=== PATIENT | male | born 1950 | race Caucasian/White ===

== ENCOUNTER 2021-08-29 08:07 | Day surgery (SDC) | payer MEDICARE, BC, SELFPAY ==
--- NOTE | 2021-08-28 13:56 | P.CONAN_ITS ---
Documented by User: Alondra Osborne NP 08/28/21 13:56 HPI - Anesthesia Eval Consult details Narrative: 71yo M for Colonoscopy [facility] Past Medical History Medical History (Updated 08/28/21 @ 12:29 by Maryam Nash RN) Abnormal colonoscopy HTN (hypertension) Hyperlipemia Surgical History Surgical History (Updated 08/28/21 @ 12:29 by Maryam Nash RN) H/O esophagogastroduodenoscopy Social History Social History Patient Tobacco Use Status: Never used Tobacco Use of substances other than those prescribed or required for medical reasons: No Have you been hit, kicked, punched, or otherwise hurt by someone within the past year? If so, by whom?: No Are you DNR?: No Advance Directives: No Advance Directives Information Provided: Yes Meds Allergies Allergy/AdvReac Type Severity Reaction Status Date / Time No Known Allergies Allergy Unverified 08/27/21 20:22 Home Medications Medication Instructions Recorded Confirmed Last Taken Type irbesartan 150 1 tab PO DAILY 08/28/21 08/28/21 Unknown History mg-hydrochlorothiazide 12.5 mg tablet omeprazole 20 mg capsule,delayed 1 cap PO DAILY 08/28/21 08/28/21 Unknown History release simvastatin 40 mg tablet 1 tab PO BEDTIME 08/28/21 08/28/21 Unknown History Exam Exam Date and Time: August 28, 2021 1356 Assessment and Plan Assessment Anesthesia Assessment: Chart Reviewed Documented by User: Ildefonso Morrissey 08/29/21 09:35 [facility] Past Medical History Medical History (Updated 08/28/21 @ 12:29 by Maryam Nash RN) Abnormal colonoscopy HTN (hypertension) Hyperlipemia Functional capacity: independent ambulation Family History Family history of problems with anesthesia: No Surgical History Surgical History (Updated 08/28/21 @ 12:29 by Maryam Nash RN) H/O esophagogastroduodenoscopy History of Problems with Anesthesia: No Social History Social History Patient Tobacco Use Status: Never used Tobacco Use of substances other than those prescribed or required for medical reasons: No Have you been hit, kicked, punched, or otherwise hurt by someone within the past year? If so, by whom?: No Are you DNR?: No Advance Directives: No Advance Directives Information Provided: Yes Meds Allergies Allergy/AdvReac Type Severity Reaction Status Date / Time No Known Allergies Allergy Unverified 08/27/21 20:22 Home Medications Medication Instructions Recorded Confirmed Last Taken Type irbesartan 150 1 tab PO DAILY 08/28/21 08/28/21 Unknown History mg-hydrochlorothiazide 12.5 mg tablet omeprazole 20 mg capsule,delayed 1 cap PO DAILY 08/28/21 08/28/21 Unknown History release simvastatin 40 mg tablet 1 tab PO BEDTIME 08/28/21 08/28/21 Unknown History Exam Airway Mallampati Class: IV TM Dist: >3cm Neck ROM: Full Loose/Missing/Broken Teeth: Yes (Chipped and fillings ) Assessment and Plan Final Anesthetic Review Family History of Problems with Anesthesia: No History of Problems with Anesthesia: No NPO: Yes ASA Class: II Final Preanesthetic Review: Consent Obtained/Reviewed and Anes Risks/Benef Reviewed Patient Risk: Intermediate Procedure Risk: Intermediate Anesthetic Plan Anesthetic Plan: MAC: Disposition: Standard PACU
[2021-08-29 08:29] VITALS: BP 119/79; PULSE 103; RESP 18; TEMP 36.8; O2SAT 99; BMI 25.8
[2021-08-29] MEDS: Lactated Ringers 1,000 ML 100 ML IVCONT (08:52)
[2021-08-29 10:41] VITALS: BP 87/55; PULSE 77; RESP 16; TEMP 36.3; O2SAT 98
--- NOTE | 2021-08-29 10:44 | P.BOP_ITS ---
Brief Operative Note Date of Service: 08/29/21 Pre-op diagnosis: Screening Post-op diagnosis: other (Colon polyps, Diverticulosis) Procedure: Colonoscopy to the cecum and TI with hot snare polypectomy x 2, with placement of 3 Resolution clips on the ICV polypectomy site Surgeon: Byron Tobias Anesthesia: MAC Was an Tableau Analyst used for this Procedure?: No Estimated blood loss (mL): 2.0 Pathology: other (A. Polyp on inferior portion of Ileocecal valve B. Polyp at 60cm) Condition: stable Disposition: PACU
[2021-08-29 10:56] VITALS: BP 90/60; PULSE 70; RESP 16; O2SAT 96
[2021-08-29 11:11] VITALS: BP 106/80; PULSE 68; RESP 16; TEMP 36.3; O2SAT 98
--- NOTE | 2021-08-29 12:12 | OP_ITS ---
SURGEON: Byron Tobias MD PREOPERATIVE DIAGNOSIS: Colorectal cancer screening and personal history of tubular adenoma of the colon. POSTOPERATIVE DIAGNOSIS: PROCEDURE PERFORMED: Colonoscopy to the cecum and terminal ileum with hot snare polypectomy and placement of 3 Resolution clips on the polypectomy from the ileocecal valve. Full consent was obtained from him for this, including risks of bleeding and perforation. ESTIMATED BLOOD LOSS: COMPLICATIONS: ANESTHESIA: Monitored anesthesia care. ASSISTANTS: SPECIMENS: POSTOPERATIVE DIAGNOSES: Colorectal cancer screening and personal history of tubular adenoma of the colon, colon polyps, diverticulosis, and internal hemorrhoids. DESCRIPTION OF PROCEDURE: The patient was placed in the left lateral decubitus position. The digital rectal exam revealed no abnormalities. The Olympus video pediatric colonoscope was entered into the rectum, advanced easily to the cecum. Once in the cecum, I did identify normal-appearing cecal pouch with appendiceal orifice. The terminal ileum was cannulated and appeared normal. The scope was withdrawn back in the colon. The entire cecum appeared normal. The ileocecal valve was carefully inspected. Along the inferior portion, just outside the opening into the ileum, was what appeared to be a grossly adenomatous area. This seemed to be just outside the opening of the ileocecal valve. This was therefore removed in piecemeal fashion with a hot snare polypectomy, and pieces were recovered by suction. Post polypectomy, there did not appear to be any definitive residual polyp tissue remaining. Three clips were applied with good deployment and good hemostasis. The remainder of the ileocecal valve appeared normal. The clips themselves did not appear to be impinging on the opening into the ileocecal valve and terminal ileum. The scope was then slowly withdrawn assessing all mucosal surfaces carefully. Preparation was excellent. At 60 cm, was an approximately 8 mm polyp, which was snared and recovered by suction. The polypectomy site appeared clean, without any sign of residual polyp nor bleeding. I did not visualize any other polyps, colitis, nor angiodysplasia. There was a moderate amount of sigmoid diverticulosis. In the rectum, scope was retroflexed visualizing internal hemorrhoids but no other pathology. The rectal mucosa appeared normal. The scope was straightened and withdrawn from the patient. He tolerated the procedure well and was returned to recovery area in stable condition. IMPRESSION: 1. Colon polyps, status post hot snare polypectomy and placement of 3 Resolution clips on the ileocecal valve polypectomy site. 2. Diverticulosis. 3. Internal hemorrhoids. PLAN: The results of the pathology will be checked. If the area of the ileocecal valve is adenomatous, I would recommend a repeat colonoscopy within 6-12 months for reinspection of that area. He was advised not to use any aspirin and NSAIDs for at least 1 week. This has been discussed with his . MD TITO Salguero/NIXON / [id number]
== END 2021-08-29 11:45 | disposition home or self-care (01) ==
PROVIDERS: PCP Internal Medicine; Visit Provider Internal Medicine
PROC: 0DJD8ZZ Inspection of Lower Intestinal Tract, Via Natural or Artificial Opening Endoscopic (ICD-10-PCS; CPT 45378; principal; 2021-08-29 09:30)
DX: Z12.11 Encounter for screening for malignant neoplasm of colon (principal); Z86.010 Personal history of colon polyps; K63.5 Polyp of colon; K57.30 Diverticulosis of large intestine without perforation or abscess without bleeding; K64.8 Other hemorrhoids; I10 Essential (primary) hypertension; E78.5 Hyperlipidemia, unspecified; Z79.899 Other long term (current) drug therapy
CPT/HCPCS: 45385; 88305; J2370

== ENCOUNTER 2024-01-16 09:21 | Outpatient (AMB) | payer MEDICARE, BC, SELFPAY ==
[2024-01-16 09:59] VITALS: BP 130/70; PULSE 72; TEMP 37.1; O2SAT 98
--- NOTE | 2024-01-16 09:59 | MHC.OFFWIV ---
Intake Vital Signs 01/16/24 09:59 Height 5 ft 3 in BP 130/70 Blood Pressure Location Rt brachial Position Sitting Pulse 72 Pulse Source Pulse Oximeter Temp 98.8 F Temp Source Oral Pulse Oximetry (%) 98 Oxygen Delivery Method Room Air Intake Visit Reasons: EST/chest congestion (lobby) Intake Note: pt is here for chest congestion Patient Tobacco Use Status: Never used Tobacco Allergies No Known Allergies Allergy (Verified 01/16/24 09:59) Do you need a note to return to daycare/school/sports/work: No HPI HPI Comments History of Present Illness Details 73 y/o male patient who presents to walk in clinic with c/o cough. Reports coughing more at night time. Reports noticing symptoms getting worse every-time he cuts Grass. [facility] Medical History (Updated 08/28/21 @ 12:29 by Maryam Nash RN) Abnormal colonoscopy Hyperlipemia HTN (hypertension) Surgical History (Updated 08/28/21 @ 12:29 by Maryam Nash RN) H/O esophagogastroduodenoscopy Social History Patient Tobacco Use Status: Never used Tobacco Review of Systems Const All systems reviewed & are unremarkable except as noted in HPI and below Physical Exam Vital Signs: Last Vital Signs Temp 98.8 F 01/16/24 09:59 Pulse 72 01/16/24 09:59 BP 130/70 01/16/24 09:59 Pulse Ox 98 01/16/24 09:59 Oxygen Delivery Method Room Air 01/16/24 09:59 Const General: comfortable and no acute distress Orientation/consciousness: patient oriented x3 HEENT Head: Yes normocephalic Ears: external ears normal and TM's normal bilaterally General nose exam: Normal nasal mucous membranes and turbinates present and No nasal discharge present Face and sinus: Yes sinuses nontender Mouth: moist mucous membranes Throat: Yes posterior oropharynx normal Neuro General: patient oriented x3, gait normal and moves all extremities Psych Speech and movement: Normal speech and movement present Assessment & Plan Assessment & Plan (1) Allergic rhinitis: Code(s): J30.9 - Allergic rhinitis, unspecified Qualifiers: Allergic rhinitis seasonality: seasonal Allergic rhinitis trigger: pollen Qualified Code(s): J30.1 - Allergic rhinitis due to pollen Plan: - OTC allergy relief remedies - Wear Mask and gloves when cutting grass. Take a shower immediately after Yard work. Medications: New benzonatate 100 mg PO TID 30 caps 0RF J30.1 - Allergic rhinitis due to pollen cetirizine (Zyrtec) 10 mg PO DAILY PRN 60 tabs 0RF allergy symptoms J30.1 - Allergic rhinitis due to pollen Coding Level of Care Code Est Pt Level 3 (26450) Diagnoses Seasonal allergic rhinitis due to pollen J30.1 Allergic rhinitis seasonality: seasonal Allergic rhinitis trigger: pollen Time Spent (min) 15
== END 2024-01-16 10:40 | disposition home or self-care (01) ==
PROVIDERS: PCP Internal Medicine; Visit Provider Nurse Practitioner Family
DX: J30.1 Allergic rhinitis due to pollen (principal)
CPT/HCPCS: 99213

== ENCOUNTER 2024-09-18 08:14 | Emergency (ER) | payer MEDICARE, BC, SELFPAY ==
--- NOTE | ~2024-09-18 | XR_ITS ---
CLINICAL HISTORY: chest pain 1 view chest x-ray Comparison: None Findings: No consolidation or effusion. Heart size is normal. No acute fracture. IMPRESSION: 1. No acute findings. This document has been electronically signed by: Augustus Fountain MD on 09/18/2024 09:00:01
--- NOTE | 2024-09-18 08:15 | ECG_ITS ---
Test Reason : cp Blood Pressure : */* mmHG Vent. Rate : 67 BPM Atrial Rate : 67 BPM P-R Int : 140 ms QRS Dur : 100 ms QT Int : 392 ms P-R-T Axes : 71 -2 100 degrees QTcB Int : 414 ms Normal sinus rhythm with sinus arrhythmia ST elevation consider inferior injury or acute infarct ACUTE IA / STEMI Consider right ventricular involvement in acute inferior infarct Abnormal ECG No previous ECGs available Referred By: Generic ED Physician Electronically Signed By: LOLA WILHELM MD
[2024-09-18] MEDS: Aspirin 81 MG TAB.CHEW 324 MG PO (08:27)
--- NOTE | 2024-09-18 08:27 | ED.CHESTPAIN ---
HPI - Chest Pain General Chief Complaint: Chest Pain Stated Complaint: CP Time Seen by Provider: 09/18/24 08:21 Source: patient and family Mode of arrival: ambulatory Limitations: no limitations History of Present Illness ED Provider: STEPHANIE KC narrative: 74 yo male with PMH of HTN, HLD, not on blood thinners did recently undergo prostate biopsy on 09/14 he has had central chest pain for the past few days but this AM upon waking he felt much more pain felt short of breath and sweaty. He has no known CAD. His rushed him to the hospital. He denies any black or bloody stools. Denies any medications other than tylenol today. He notes he has not had any URI. He walked into our triage with this complaint MD complaint: chest pain Onset (ago): day(s) (3) Timing of current episode: episodic (much worse upon waking this AM) Prior episodes: No Onset: during rest and during exertion Pain location: substernal Pain radiation: none Severity: moderate Quality: tightness Relieving factors: nothing Exacerbating factors: exertion Associated symptoms: nausea, diaphoresis and dyspnea Treatment prior to arrival: none Related Data Home Medications ?Medication ?Instructions ?Recorded ?Confirmed irbesartan 150 1 tab PO DAILY 08/28/21 08/28/21 mg-hydrochlorothiazide 12.5 mg tablet omeprazole 20 mg capsule,delayed 1 cap PO DAILY 08/28/21 08/28/21 release simvastatin 40 mg tablet 40 mg PO BEDTIME 01/16/24 Previous Rx's ?Medication ?Instructions ?Recorded benzonatate 100 mg capsule 100 mg PO TID #30 caps 01/16/24 cetirizine 10 mg tablet 10 mg PO DAILY for allergies #90 03/12/24 tabs Allergies Allergy/AdvReac Type Severity Reaction Status Date / Time No Known Allergies Allergy Verified 09/18/24 08:34 Review of Systems Review of Systems: Constitutional : No Weight loss, No Fever, No Chills ENT/Mouth : No sore throat, No Rhinorrhea Eyes: No Eye Pain, No Swelling Cardiovascular : pos Chest Pain, pos SOB, no Dyspnea on Exertion, No Orthopnea, No Edema, No Palpitations Respiratory : No Cough, No Sputum Gastrointestinal : pos Nausea, No Vomiting, No Diarrhea, No abdominal Pain, No Hematochezia, No Melena Genitourinary : No Dysuria, No Urinary Frequency Musculoskeletal : No joint pain, No Myalgias, No Joint Swelling Skin : No Skin Lesions, No rash Neuro : No Weakness, No Numbness, No Dizziness, No Headache All other systems reviewed and are negative [facility] Past Medical History Attestation statement: The following information was validated with the patient. Source: old records reviewed Medical History Abnormal colonoscopy Hyperlipemia HTN (hypertension) Surgical History H/O esophagogastroduodenoscopy Social History Social History Patient Tobacco Use Status: Never used Tobacco Advance Directives: No Advance Directives Information Provided: Yes Physical Exam Vital Signs: Vital Signs: Last Vital Signs Temp 97.9 F 09/18/24 08:37 Pulse 60 09/18/24 08:33 Resp 18 09/18/24 08:33 BP 143/89 H 09/18/24 08:33 Pulse Ox 100 09/18/24 08:33 O2 Del Method Room Air 09/18/24 08:33 BMI result Body Mass Index 26.2 Appearance: Alert. Oriented X3. Mild acute distress. appears uncomfortable Eyes: Pupils equal, round and reactive to light. ENT: Pharynx normal. Neck: Normal inspection. Neck supple. CVS: Normal heart rate and rhythm. Pulses normal. Respiratory: No respiratory distress. Breath sounds normal. Abdomen: Soft and nontender. Skin: Skin warm and dry. pale skin color. Normal skin turgor. Extremities: No lower extremity edema. Neuro: Oriented X 3. No motor deficit. No sensory deficit. CN2-12 intact Course Course Course Narrative: call to IR cards 0815 call to EMS transportlevel [address] 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 830am EMS arrived in ED for transport 847am EMS out the door with the patient 857am Medications Administered Generic Name Dose Route Start Last Admin Trade Name Freq PRN Reason Stop Dose Admin Lactated Ringer's 1,000 mls @ 999 mls/hr 09/18/24 08:25 09/18/24 08:30 Lr IV 09/18/24 09:25 999 mls/hr .Q1H1M ONE Administration Discontinued Medications Generic Name Dose Route Start Last Admin Trade Name Rolan PRN Reason Stop Dose Admin Aspirin 324 mg 09/18/24 08:21 09/18/24 08:27 Aspirin 81 Mg Tab.Chew PO 09/18/24 08:22 324 mg ONCE ONE Administration Atorvastatin Calcium 80 mg 09/18/24 08:21 09/18/24 08:30 Atorvastatin Calcium 80 Mg Tablet PO 09/18/24 08:22 80 mg ONCE ONE Administration Fentanyl 50 mcg 09/18/24 08:25 09/18/24 08:31 Fentanyl Citrate/Pf 100 Mcg/2 Ml Vial IVPUSH 09/18/24 08:26 50 mcg ONCE ONE Administration Protocol Heparin Sodium (Porcine) 4,000 unit 09/18/24 08:22 09/18/24 08:30 Heparin Sodium,Porcine 5,000 Unit/Ml Vial IVPUSH 09/18/24 08:23 4,000 unit ONCE ONE Administration Ondansetron HCl 4 mg 09/18/24 08:25 09/18/24 08:31 Ondansetron Hcl 4 Mg/2 Ml Vial IVPUSH 09/18/24 08:26 4 mg ONCE ONE Administration Ticagrelor 180 mg 09/18/24 08:21 09/18/24 08:28 Ticagrelor 90 Mg Tablet PO 09/18/24 08:22 180 mg ONCE ONE Administration Medical Decision Making Medical Decision Making MDM Narrative: 74 yo male with PMH of HTN, HLD, not on blood thinners here with c/o intermittent chest pain x 3 days much worse this AM became diaphoretic, pale, dyspnea and mild nausea. No medications prior to arrival, EKG showing NITA inf leads with reciprocal changes lateral leads as well as ST depresison V2. At this time given presentation will alert STEMI transfer line and STEMI line at [place] on arrival. He will be given STEMI medications and started on fluids, no signs of CHF overload. Discussed plan with . Differential Diagnosis Differential Diagnoses: The differential diagnosis associated with the presentation includes STEMI, ACS Admission/Observation Consideration of admission/observation: Escalation of care including admission/observation considered stat STEMI transfer on arrival including STEMI meds heparin load 4,000 aspirin 324 atorvastatin 80mg brilinta 180 given inf involvement IV fentanyl for pain 50mcg and liter of fluids Consult Healthcare Provider Management of the patient was discussed with: Flat Sorter Processor ([place] accepts patient) Lab Data MDM Lab Attestation statement: I reviewed the patient's lab results. 09/18/24 08:28 09/18/24 08:28 Labs: Lab Results 09/18/24 09/18/24 Range/Units 08:28 08:29 WBC 12.2 H (4.8-10.8) X10*3/uL RBC 5.32 (4.60-5.80) X10*6/uL Hgb 16.4 (14.0-18.0) g/dl Hct 47.6 (42.0-52.0) % MCV 89.5 (80.0-98.0) fL MCH 30.8 (27.0-33.0) pg MCHC 34.5 (31.0-36.0) g/dl RDW 12.2 (11.0-16.0) % Plt Count 225 (160-400) X10*3/uL MPV 11.0 (9.4-12.4) fL Hold Purple Top SEE NOTE PT 11.6 (10.9-12.4) SEC INR 1.0 (0.9-1.1) Independent Interpretation I performed an independent interpretation of an: EKG Interpretation: Rate: 67 Rhythm: NSR [place]: left Normal P waves. Normal MARK. Normal QRS complex. ST T wave : ST elevation in inf leads, reciprocal changes in I and aVL, ST depression V2 qTC: 414 prior studies: no prior The study has been interpreted contemporaneously by me. . Independent Historian Clinical information obtained from an independent historian. History obtained from or confirmed by: Spouse External Record Review External record reviewed: Outpatient record Critical Care Time Critical Care Time Critical Care Time: Yes Total Critical Care Time: 35 Attestation: STEMI transfer, discussion with family, IV fentanyl for pain I attest to this time spent taking care of the patient Discharge Plan Discharge Clinical Impression: ST elevation (STEMI) myocardial infarction Patient Disposition: Xfer Acute Care Hospital Transfer Details: 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
[2024-09-18] MEDS: Ticagrelor 90 MG TABLET 180 MG PO (08:28)
[2024-09-18] MEDS: Atorvastatin Calcium 80 MG TABLET PO (08:30)
[2024-09-18] MEDS: Heparin Sodium,Porcine 5,000 UNIT/ML VIAL 4000 UNIT IVPUSH (08:30)
[2024-09-18] MEDS: Lactated Ringers 1,000 ML 999 ML IV (08:30)
[2024-09-18 08:31] VITALS: RESP 18
[2024-09-18] MEDS: fentaNYL citrate/PF 100 MCG/2 ML VIAL 50 MCG IVPUSH (08:31)
[2024-09-18] MEDS: ondansetron HCL 4 MG/2 ML VIAL IVPUSH (08:31)
[2024-09-18 08:33] VITALS: BP 143/89; PULSE 60; RESP 18; O2SAT 100; BMI 26.2
--- OUTSIDE RECORDS SUMMARY | 2024-09-18 08:36 | XMS_ITS | Clinical Summary ---
Author Organization [address] Address [address] [place] [address] Phone Care Team Providers Care Actuarial Science Teacher Name Role Phone Unavailable Primary Care Provider Unavailabl e Encounters Date Type Department Care Team Description 09/15/2024 Lab Requisition [facility] - Main Lab [address] [facility] [id number] [place] [address] Eliazar Acharya MD Elevated prostate specific antigen (PSA) from Last 3 Months Social History Tobacco Use Types Packs/Day Years Used Date Smoking Tobacco: Never Assessed Sex and Gender Information Value Date Recorded Sex Assigned at Not on file Gender Identity Not on file Sexual Orientation Not on file Plan of Treatment Health Maintenance Due Date Last Done Comments DTaP,Tdap,and Td Vaccines (1 - Tdap) 1970 Zoster Vaccines (1 of 2) 2001 Pneumococcal Vaccine: 65+ Ye ars (1 of 1 - PCV) 2016 COVID-19 Vaccine ( - 2023-2 5 season) 2024 Influenza Vaccine (#1) 2024 Abdominal Aortic Aneurysm (A AA) Screen 09/16/2024 Cholesterol Screening (Lipid Panel) 09/16/2024 Colorectal Cancer Screening: Colonoscopy 09/16/2024 Depression Screening 09/16/2024 Falls Risk Assessment 09/16/2024 Hepatitis C Screening 09/16/2024 Medicare Annual Wellness Visit 09/16/2024 Social Influencers of Health Screening 09/16/2024 RSV Immunization Patients 60 + Years Old (1 - 1-dose 75+ series) 2026 HIB Vaccines Aged Out No longer eligi ble based on patient's age to complete this topic HPV Vaccines Aged Out No longer eligi ble based on patient's age to complete this topic Hepatitis A Vaccines Aged Out No long er eligible based on patient's age to complete this topic Hepatitis B Vaccines Aged Out No long er eligible based on patient's age to complete this topic IPV Vaccines Aged Out No longer eligi ble based on patient's age to complete this topic MMR Vaccines Aged Out No longer eligi ble based on patient's age to complete this topic Meningococcal ACWY Vaccine Aged Out N o longer eligible based on patient's age to complete this topic RSV Immunization Patients Un alpesh 20 months Aged Out No longer eligible b ased on patient's age to complete this topic Varicella Vaccines Aged Out No longer eligible based on patient's age to complete this topic
--- OUTSIDE RECORDS SUMMARY | 2024-09-18 08:36 | XMS_ITS ---
Author Organization [facility] Address [address] [place] [address] Care Team Providers Care Contact Lens Polisher Name Role Phone Debo Hammer MD Primary Care Provider Byron Wang [facility] [phone] REASON FOR VISIT colon recall Encounters Encounter Location Date Provider Diagnosis [facility] [address] [place] [address] 06/09/2024 Byron Tobias PLAN OF TREATMENT No Information
--- OUTSIDE RECORDS SUMMARY | 2024-09-18 08:36 | XMS_ITS | Encounter Summary ---
Author Organization [facility] Address [address] [place] [address] Care Team Providers Care Alcohol Rubber Name Role Phone Unavailable Primary Care Provider Unavailabl e Encounter Details Date Type Department Care Team (Late st Contact Info) Description 09/15/2024 Lab Requisition [facility] - Main Lab [address] [facility] [place] [address] Eliazar Acharya MD [address] [facility] [address] [place] [id number] Elevated prostate specific antigen (PSA) Social History Tobacco Use Types Packs/Day Years Used Date Smoking Tobacco: Never Assessed Sex and Gender Information Value Date Recorded Sex Assigned at Not on file Gender Identity Not on file Sexual Orientation Not on file documented as of this encounter Plan of Treatment Pending Results Name Type Priority Associated Diagnoses Date /Time Anatomic pathology outside consult Pathology and Cytology Routine Elevated prostate specific antigen (PSA) 09/14/2024 documented as of this encounter Visit Diagnoses Diagnosis Elevated prostate specific antigen (PSA) documented in this encounter
--- OUTSIDE RECORDS SUMMARY | 2024-09-18 08:36 | XMS_ITS | Patient Health Record ---
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 Name Role Phone Debo Hammer MD Primary Care Provider Byron Wang [phone] ALLERGIES No Known Allergies REASON FOR REFERRAL No Information MEDICATIONS Medication SIG (Take, Route, Frequency, Duration) Notes Start Date End Date Status Omeprazole 20 MG 2 capsules Orally On ce a day Active Irbesartan-hydroCHLOROthiaz eva 150-12.5 MG Oral for 90 Active Simvastatin 40 MG 1 tablet in the even ing Orally Once a day Active IMMUNIZATIONS Vaccine Route Administration Date Status Comme nts Influenza Unknown 05/25/2021 Administered SOCIAL HISTORY Sex Assigned At : Social History Observation Description Sex Assigned At Unknown PROBLEMS Problem Type ICD Code Onset Dates Problem Status W/U Status Risk SNOMED Code Notes Problem Encounter for screening for malignant neoplasm of colon (Z12.11) Active confirmed 849333990 Problem Encounter for screening for malignant neoplasm of rectum (Z12.12) Active confirmed Screening for malignant neoplasm of rectum (148407676) Problem Gastroesophageal reflux disease, esophagitis presence not specified (K21.9) Active confirmed 833123589 Problem History of adenomatous polyp of colon (Z86.010) Active confirmed 892485038 Problem Preprocedural examination (Z01.818) Active confirmed 085027489912892 Problem Diverticulosis of colon (K57.30) Active confirmed Diverticulosi s of colon (309979740) Encounters Encounter Location Date Provider Diagnosis [facility] [address] [place] [id number] 06/09/2024 Byron Tobias PLAN OF TREATMENT Future Test Test Name Order Date COLONOSCOPY 04/16/2016 COLONOSCOPY 08/02/2021 Insurance Providers Payer Name Payer Address Payer Phone Subscriber Number Group Number Insured Name Patient Relationship to Insured Coverage Start Date Coverage End Date MEDICARE OF [place] [address] [place] [address] [phone] [id number] CHELSEA GARCIA Self - patient is the insured [facility] [address] [place], [place] [id number] CHELSEA GARCIA Self - patient is the insured MEDICAL (GENERAL) HISTORY Medical History History ICD Code Hypertension Denies [place],DM,CVA,Lung disease,renal dise ase Colonoscopy at [facility] with Dr. Martínez > 10 yrs ago--polyps removed Hyperlipidemia GERD--reports an EGD at [facility]--thinks it was negative Colonoscopy in 06/2016 with removal of a tubular adenoma Surgical History Surgery Date(Month/Year)
[2024-09-18 08:37] VITALS: TEMP 36.6
[2024-09-18 08:41] LABS: Basophils Absolute Auto 0.1 X10*3/uL (0.0-0.2); Basophils Percent Auto 0.5 % (0-2); Eosinophils Absolute Auto 0.4 X10*3/uL (0.0-0.4); Hematocrit 47.6 % (42.0-52.0); Hemoglobin 16.4 g/dl (14.0-18.0); Imm Gran Abs Auto 0.04 X10*3/uL (0.00-0.03); Imm Gran Pct Auto 0.3 % (0.0-0.4); Lymphocytes Absolute Auto 5.1 X10*3/uL (1.2-4.9); Lymphocytes Percent Auto 41.3 % (20-40); MANUAL DIFF FLAG SCAN; Mean Corpuscular HGB Conc 34.5 g/dl (31.0-36.0); Mean Corpuscular Hemoglobin 30.8 pg (27.0-33.0); Mean Corpuscular Volume 89.5 fL (80.0-98.0); Monocytes Absolute Auto 1.3 X10*3/uL (0.1-1.2); Monocytes Percent Auto 10.5 % (2-11); Neutrophils Absolute Auto 5.4 x10*3/uL (2.0-8.3); Neutrophils Percent Auto 44.4 % (45-73); Platelet Count 225 X10*3/uL (160-400); Red Blood Count 5.32 X10*6/uL (4.60-5.80); Red Cell Distribution Width 12.2 % (11.0-16.0); SCAN SMEAR FLAG 1; White Blood Count 12.2 X10*3/uL (4.8-10.8)
[2024-09-18 08:42] LABS: Prothrombin Time 11.6 SEC (10.9-12.4)
--- NOTE | 2024-09-18 08:49 | PC.NURSE ---
EMS arrived at 8:49am, report given to EMS
--- NOTE | 2024-09-18 08:56 | PC.NURSE ---
Pt reports CP/pressure at 5/10 at this time; vss; bedside report gv to EMS for transport; LR IVF's infusing per orders; several attempts made to reach cardiac laborer petroleum refinery at [facility]/no answer at several phone numbers at this time; pt leaving ER at [phone] with EMS
[2024-09-18 08:57] VITALS: BP 143/79; PULSE 65; RESP 18; TEMP 36.6; O2SAT 100
[2024-09-18 09:01] LABS: SLIDE REVIEW VERIFIED
--- NOTE | 2024-09-18 09:12 | PC.NURSE ---
Report given to DIEGO Garcia at [facility] cath lab technologist
[2024-09-18 09:15] VITALS: BP 143/79; PULSE 65; RESP 18; TEMP 36.6; O2SAT 100
== END 2024-09-18 08:57 | disposition short-term general hospital (02) ==
PROVIDERS: Emergency Provider Emergency Medicine; PCP Internal Medicine
DX: I21.19 ST elevation (STEMI) myocardial infarction involving other coronary artery of inferior wall (principal); R06.02 Shortness of breath; I10 Essential (primary) hypertension; E78.5 Hyperlipidemia, unspecified; Z79.899 Other long term (current) drug therapy; Z79.02 Long term (current) use of antithrombotics/antiplatelets
CPT/HCPCS: 36415; 71045; 84484; 85025; 85610; 93005; 96374; 96375; 99285; J1644; J2405; J3010; J7120

== ENCOUNTER → 2024-09-18 08:15 | Outpatient (BNV) | payer MEDICARE, BC, SELFPAY | PROVIDERS: Emergency Provider Emergency Medicine; PCP Internal Medicine; Visit Provider Internal Medicine Cardiovascular Disease | DX: I21.3 ST elevation (STEMI) myocardial infarction of unspecified site (principal) | CPT/HCPCS: 93010 ==

== ENCOUNTER → 2024-09-18 08:22 | Outpatient (BNV) | payer MEDICARE, BC, SELFPAY | PROVIDERS: Emergency Provider Emergency Medicine; PCP Internal Medicine; Visit Provider Radiology Diagnostic Radiology | DX: R07.9 Chest pain, unspecified (principal) | CPT/HCPCS: 71045 ==